=== PATIENT | female | born 1955 | race Caucasian/White ===

== ENCOUNTER 2017-06-12 19:13 | Inpatient (IN) | payer OTHER ==
[~2017-06-12] VITALS: Ht 152.4 cm; Wt 49.9 kg
[2017-06-12 21:40] LABS: PLATELET COUNT 284 x10^3mcL (130-400)
[2017-06-12 21:47] LABS: RED CELL DISTRIBUTION WIDTH 21.5 % (11.5-14.5)
[2017-06-12 21:52] LABS: CALCIUM 7.8 mg/dL (8.5-10.1); CARBON DIOXIDE 23.2 mmol/L (21-32); CHLORIDE SERUM 98 mmol/L (98-107); CREATININE SERUM 0.7 mg/dL (0.6-1.0); GFR1 > 60 mL/min; GLUCOSE SERUM 112 mg/dL (74-106); SODIUM SERUM 132 mmol/L (136-145)
[2017-06-12 21:57] LABS: ALKALINE PHOSPHATASE 153 U/L (46-116); ALT/SGPT 7 U/L (14-59); AST/SGOT 12 U/L (15-37); BILIRUBIN TOTAL 0.3 mg/dL (0.20-1.00)
[2017-06-12 21:59] LABS: ALBUMIN 1.6 g/dL (3.4-5.0); C REACTIVE PROTEIN 18.1 mg/dL (<=0.9)
[2017-06-12 22:02] LABS: T3 TOTAL 0.66 ng/mL
[2017-06-12 22:04] LABS: BAND NEUTROPHIL 0 % (0-10); BASOPHIL 0 % (0-2); MONOCYTE 12 % (0-7); SEGMENTED NEUTROPHILS 66 % (37-75)
[2017-06-12 22:05] LABS: rbc morphology (normal/abnorm) ABNORMAL (NORMAL)
[2017-06-12 22:06] LABS: tear drop cell (dacryocyte) 1+
[2017-06-12 22:18] LABS: CK-MB < 0.5 ng/mL (0-3.6); CREATINE KINASE 7 U/L (26-192)
[2017-06-12 22:19] LABS: FREE T4 1.15 ng/dL (0.76-1.46); FREE THYROXINE INDEX 2.2 ug/dL (1.4-4.5); T4(THYROXINE) 5.4 ug/dL (4.7-13.3)
[2017-06-12 23:10] LABS: PATH REVIEW for HEMA YES
[2017-06-13] VITALS (15 sets, daily range): BP systolic 81–116; BP diastolic 38–61
[2017-06-13 00:20] LABS: UA SPECIFIC GRAVITY 1.015 (1.005-1.035); microscopic required? YES; urine erythrocyte NEGATIVE (NEGATIVE)
[2017-06-13 00:55] LABS: AMPHETAMINE QUAL UR NONE DETECTED (NEG <=1000)
[2017-06-13 01:12] LABS: PHOSPHOROUS 2.9 mg/dL (2.5-4.9)
[2017-06-13 01:13] LABS: CHOLESTEROL/HDL RATIO 7.6
[2017-06-13 07:19] LABS: BASOPHIL % 1.1 % (0-2); PLATELET COUNT 261 x10^3mcL (130-400)
[2017-06-13 07:24] LABS: CALCIUM 7.7 mg/dL (8.5-10.1); CARBON DIOXIDE 24.1 mmol/L (21-32); CHLORIDE SERUM 100 mmol/L (98-107); CREATININE SERUM 0.7 mg/dL (0.6-1.0); GFR1 > 60 mL/min; GLUCOSE SERUM 110 mg/dL (74-106); POTASSIUM SERUM 3.7 mmol/L (3.5-5.1); SODIUM SERUM 134 mmol/L (136-145)
[2017-06-13 07:32] LABS: rbc morphology (normal/abnorm) ABNORMAL (NORMAL)
[2017-06-13 13:40] LABS: IRON 38 ug/dL (50-170); TOTAL IRON BINDING CAPACITY 169 ug/dL (250-450)
[2017-06-13 15:16] LABS: RED BLOOD CELLS 1.69 M/mm3 (4.10-5.10)
[2017-06-13 16:31] LABS: PLATELET COUNT 253 x10^3mcL (130-400)
[2017-06-13 16:43] LABS: RED CELL DISTRIBUTION WIDTH 18.6 % (11.5-14.5)
[2017-06-13 17:04] LABS: BAND NEUTROPHIL 0 % (0-10); BASOPHIL 0 % (0-2); MONOCYTE 14 % (0-7); SEGMENTED NEUTROPHILS 69 % (37-75); rbc morphology (normal/abnorm) ABNORMAL (NORMAL)
[2017-06-14 02:29] LABS: BASOPHIL % 0.6 % (0-2); PLATELET COUNT 262 x10^3mcL (130-400)
[2017-06-14 03:02] LABS: RED CELL DISTRIBUTION WIDTH 16.7 % (11.5-14.5)
[2017-06-14 03:04] LABS: rbc morphology (normal/abnorm) ABNORMAL (NORMAL)
[2017-06-14 05:30] VITALS: BP 105/54
[2017-06-14 06:17] LABS: PLATELET COUNT 236 x10^3mcL (130-400)
[2017-06-14 06:25] LABS: RED CELL DISTRIBUTION WIDTH 17.9 % (11.5-14.5)
[2017-06-14 06:33] LABS: CALCIUM 7.6 mg/dL (8.5-10.1); CARBON DIOXIDE 26.2 mmol/L (21-32); CHLORIDE SERUM 102 mmol/L (98-107); CREATININE SERUM 0.5 mg/dL (0.6-1.0); GFR1 > 60 mL/min; GLUCOSE SERUM 78 mg/dL (74-106); MAGNESIUM 2.1 mg/dL (1.8-2.4); PHOSPHOROUS 3.8 mg/dL (2.5-4.9); POTASSIUM SERUM 4.4 mmol/L (3.5-5.1); SODIUM SERUM 137 mmol/L (136-145)
[2017-06-14 08:52] LABS: BAND NEUTROPHIL 3 % (0-10); MONOCYTE 14 % (0-7); SEGMENTED NEUTROPHILS 66 % (37-75); rbc morphology (normal/abnorm) ABNORMAL (NORMAL)
[2017-06-14 08:53] LABS: PLATELET MORPHOLOGY LARGE PLATELET SEEN
[2017-06-14 09:34] VITALS: BP 104/56
[2017-06-14 10:45] VITALS: BP 97/53
[2017-06-14 11:00] VITALS: BP 98/56
[2017-06-14 14:00] VITALS: BP 97/57
[2017-06-14 18:22] VITALS: BP 98/53
[2017-06-14 18:39] LABS: BASOPHIL % 0.5 % (0-2); PLATELET COUNT 250 x10^3mcL (130-400)
[2017-06-14 18:41] LABS: RED CELL DISTRIBUTION WIDTH 17.2 % (11.5-14.5)
[2017-06-15] VITALS (7 sets, daily range): BP systolic 89–125; BP diastolic 42–65; Ht 152.4 cm; Wt 49.9 kg
[2017-06-15 06:57] LABS: PLATELET COUNT 228 x10^3mcL (130-400)
[2017-06-15 06:59] LABS: CALCIUM 7.7 mg/dL (8.5-10.1); CARBON DIOXIDE 22.9 mmol/L (21-32); CHLORIDE SERUM 101 mmol/L (98-107); CREATININE SERUM 0.5 mg/dL (0.6-1.0); GFR1 > 60 mL/min; GLUCOSE SERUM 77 mg/dL (74-106); MAGNESIUM 2.1 mg/dL (1.8-2.4); PHOSPHOROUS 3.5 mg/dL (2.5-4.9); POTASSIUM SERUM 4.2 mmol/L (3.5-5.1); SODIUM SERUM 134 mmol/L (136-145)
[2017-06-15 07:08] LABS: RED CELL DISTRIBUTION WIDTH 17.2 % (11.5-14.5)
[2017-06-15 08:27] LABS: BAND NEUTROPHIL 0 % (0-10); BASOPHIL 0 % (0-2); MONOCYTE 20 % (0-7); SEGMENTED NEUTROPHILS 60 % (37-75)
[2017-06-15 08:28] LABS: PLATELET MORPHOLOGY PLATELETS NORMAL; rbc morphology (normal/abnorm) ABNORMAL (NORMAL)
[2017-06-16 05:37] VITALS: BP 107/55
[2017-06-16 06:59] LABS: BASOPHIL % 0.4 % (0-2); PLATELET COUNT 219 x10^3mcL (130-400)
[2017-06-16 07:05] LABS: CALCIUM 7.5 mg/dL (8.5-10.1); CARBON DIOXIDE 23.8 mmol/L (21-32); CHLORIDE SERUM 99 mmol/L (98-107); CREATININE SERUM 0.6 mg/dL (0.6-1.0); GFR1 > 60 mL/min; GLUCOSE SERUM 134 mg/dL (74-106); PHOSPHOROUS 2.8 mg/dL (2.5-4.9); POTASSIUM SERUM 4.3 mmol/L (3.5-5.1); SODIUM SERUM 132 mmol/L (136-145)
[2017-06-16 07:06] LABS: RED CELL DISTRIBUTION WIDTH 17.5 % (11.5-14.5)
[2017-06-16 09:24] VITALS: BP 110/63
[2017-06-16 12:44] VITALS: BP 114/52
[2017-06-16 18:10] VITALS: BP 110/57
[2017-06-16 21:58] VITALS: BP 99/50
[2017-06-17 05:43] VITALS: BP 103/60
[2017-06-17 07:12] LABS: BASOPHIL % 0.6 % (0-2); PLATELET COUNT 210 x10^3mcL (130-400)
[2017-06-17 07:15] LABS: RED CELL DISTRIBUTION WIDTH 17.4 % (11.5-14.5)
[2017-06-17 07:33] LABS: CALCIUM 8.1 mg/dL (8.5-10.1); CARBON DIOXIDE 24.7 mmol/L (21-32); CHLORIDE SERUM 100 mmol/L (98-107); CREATININE SERUM 0.4 mg/dL (0.6-1.0); GFR1 > 60 mL/min; GLUCOSE SERUM 116 mg/dL (74-106); PHOSPHOROUS 3.1 mg/dL (2.5-4.9); POTASSIUM SERUM 4.3 mmol/L (3.5-5.1); SODIUM SERUM 133 mmol/L (136-145)
[2017-06-17 09:50] VITALS: BP 108/56
[2017-06-17 16:55] VITALS: BP 102/58
[2017-06-17 20:58] VITALS: BP 107/57
[2017-06-18 05:53] VITALS: BP 102/54
[2017-06-18 07:22] LABS: BASOPHIL % 0.7 % (0-2); PLATELET COUNT 201 x10^3mcL (130-400)
[2017-06-18 07:31] LABS: RED CELL DISTRIBUTION WIDTH 17.7 % (11.5-14.5)
[2017-06-18 07:33] LABS: rbc morphology (normal/abnorm) ABNORMAL (NORMAL)
[2017-06-18 08:05] LABS: CALCIUM 8.1 mg/dL (8.5-10.1); CARBON DIOXIDE 26.4 mmol/L (21-32); CHLORIDE SERUM 99 mmol/L (98-107); CREATININE SERUM 0.5 mg/dL (0.6-1.0); GFR1 > 60 mL/min; GLUCOSE SERUM 78 mg/dL (74-106); MAGNESIUM 1.9 mg/dL (1.8-2.4); PHOSPHOROUS 3.3 mg/dL (2.5-4.9); POTASSIUM SERUM 4.2 mmol/L (3.5-5.1); SODIUM SERUM 133 mmol/L (136-145)
[2017-06-18 10:34] VITALS: BP 94/43
[2017-06-18 12:03] VITALS: BP 96/53
[2017-06-18 15:15] VITALS: BP 110/63
[2017-06-18 17:44] VITALS: BP 101/60
[2017-06-18 20:47] LABS: SOURCE FLUID THORACENTESIS
[2017-06-18 20:48] LABS: APPEARANCE FLUID HAZY; COLOR FLUID PALE YELLOW; RBC FLUID 1247.8 /cumm; WBC FLUID 5.6 /cumm
[2017-06-18 21:38] VITALS: BP 101/55
[2017-06-19 01:26] LABS: BASOPHIL % 0.6 % (0-2); PLATELET COUNT 207 x10^3mcL (130-400)
[2017-06-19 01:31] LABS: RED CELL DISTRIBUTION WIDTH 16.3 % (11.5-14.5)
[2017-06-19 06:36] VITALS: BP 97/51
[2017-06-19 07:51] VITALS: BP 100/55
[2017-06-19 11:19] LABS: BASOPHIL % 0.4 % (0-2); PLATELET COUNT 210 x10^3mcL (130-400)
[2017-06-19 11:20] LABS: RED CELL DISTRIBUTION WIDTH 16.5 % (11.5-14.5)
[2017-06-19 11:32] LABS: CARBON DIOXIDE 26.3 mmol/L (21-32); CHLORIDE SERUM 96 mmol/L (98-107); CREATININE SERUM 0.5 mg/dL (0.6-1.0); GFR1 > 60 mL/min; GLUCOSE SERUM 100 mg/dL (74-106); MAGNESIUM 1.9 mg/dL (1.8-2.4); PHOSPHOROUS 3.8 mg/dL (2.5-4.9); POTASSIUM SERUM 4.7 mmol/L (3.5-5.1); SODIUM SERUM 130 mmol/L (136-145)
[2017-06-19] MEDS ORDERED: FERROUS SULFAT325 M2 PO (13:20)
[2017-06-19] MEDS ORDERED: LAC PO (13:21)
[2017-06-19 13:35] VITALS: BP 100/55
== END 2017-06-19 15:10 | disposition short-term general hospital (02) | DRG 681 ==
LOC: ED 19:13 → DU 23:21 → MU 06-16 08:50
PROVIDERS: Family Medicine; Internal Medicine; Specialist
PROC: 07BJ3ZX Excision of Left Inguinal Lymphatic, Percutaneous Approach, Diagnostic (ICD-10-PCS; 2017-06-13)
PROC: 30233N1 Transfusion of Nonautologous Red Blood Cells into Peripheral Vein, Percutaneous Approach (ICD-10-PCS; 2017-06-13)
PROC: 0DBH8ZX Excision of Cecum, Via Natural or Artificial Opening Endoscopic, Diagnostic (ICD-10-PCS; principal; 2017-06-14 12:30)
PROC: 0DB68ZX Excision of Stomach, Via Natural or Artificial Opening Endoscopic, Diagnostic (ICD-10-PCS; 2017-06-15)
PROC: 0W9B3ZZ Drainage of Left Pleural Cavity, Percutaneous Approach (ICD-10-PCS; 2017-06-18)
DX: C85.85 Other specified types of non-Hodgkin lymphoma, lymph nodes of inguinal region and lower limb (principal); N17.0 Acute kidney failure with tubular necrosis; E43 Unspecified severe protein-calorie malnutrition; H66.92 Otitis media, unspecified, left ear; J90 Pleural effusion, not elsewhere classified; N13.30 Unspecified hydronephrosis; E87.1 Hypo-osmolality and hyponatremia; D64.9 Anemia, unspecified; R59.9 Enlarged lymph nodes, unspecified; Z68.21 Body mass index [BMI] 21.0-21.9, adult; E02 Subclinical iodine-deficiency hypothyroidism
CPT/HCPCS: 32555; 36600; 43235; 45378; 83880; 84439; 85060; C1729; J0696; J1200; J1610; J1885; J2001; J2250; J2310; J2405; J2916; J3010; J3490; J7030; J7040; P9016; Q0092; Q0163; Q9967